=== PATIENT | female | born 1980 | race Caucasian/White ===

== ENCOUNTER → 2020-12-08 11:13 | Outpatient (CLI) | payer BC, SELFPAY ==
[2020-12-08 13:39] LABS: Hematocrit 40.4 % (37-47); Hemoglobin 13.5 g/dL (12.0-15.0); Mean Corp Hgb Conc 33.4 g/dL (32-36); Mean Corpuscular Hgb 26.9 pg (27.0-32.0); Mean Corpuscular Volume 80.6 fL (81-99); Mean Platelet Vol. 9.3 fl (6.2-12.0); Platelet Count 378 K/mm3 (150-450); RBC Distribution Width CV 14.2 % (11.6-14.6); RBC Distribution Width SD 41.1 fl (35.1-43.9); Red Blood Count 5.01 M/mm3 (4.2-5.4); White Blood Count 6.5 K/mm3 (4.4-11.0)
[2020-12-08 13:56] LABS: Follicle Stimulating Hormone 6.5 mIU/mL; Luteinizing Hormone 9.1 mIU/mL; Prolactin 5.3 ng/mL; T4 Free Direct 0.97 ng/dL (0.76-1.46); Thyroid Stim Hormone (TSH) 1.78 uIU/mL (0.358-3.74)
[2020-12-11 12:45] LABS: HPV APTIMA, High Risk Negative (Negative)
[2020-12-12 14:08] LABS: Chlamydia By Nucleic Acid AMP Negative (Negative); DHEA Sulfate 83.5 ug/dL (57.3-279.2); Gonococcus By Nucleic Acid AMP Negative (Negative)
[2020-12-13 07:53] LABS: Testosterone Free 1.3 pg/mL (0.0-4.2)
== END ==
PROVIDERS: Visit Provider Obstetrics & Gynecology
DX: N93.9 Abnormal uterine and vaginal bleeding, unspecified (principal); Z12.4 Encounter for screening for malignant neoplasm of cervix
CPT/HCPCS: 36415; 82627; 83001; 83002; 84146; 84402; 84439; 84443; 85027; 87491; 87591; 87624; 88175; 82626; G0145

== ENCOUNTER → 2020-12-29 | Outpatient (CLI) | payer BC, SELFPAY ==
--- NOTE | 2020-12-29 14:00 | EMB_PTH ---
PATIENT: LELAND HUITRON LOC: [facility] U#:[id number] AGE/SX: 40/F ROOM: RE12/29/[address]: Dr. Leandro Holt MD : [id number] BED: DIS: 12/29/2020 SPEC #: [id number] RECD: 12/29/20 15:48 STATUS: NYDIA ZHU #: [id number] ABDIEL: 12/29/20 14:[address]: Leandro Holt DEPT: SURGICAL PATHOLOGY RECD BY: Jaron Rivera Tissues: Endometrium, NOS Procedures: Surgery Specimen Level IV HEADER OPERATION: Endometrial biopsy PRE-OP DIAGNOSIS: N92.0, N94.6 TISSUE SUBMITTED: Endometrial biopsy MICROSCOPIC DIAGNOSIS Endometrial biopsy: Proliferative endometrium. Fragments of benign endocervical mucosa. SJ:julio 12/31/2020 MICROSCOPIC DESCRIPTION Slides are reviewed. GROSS DESCRIPTION Received in fixative is one container labeled with the patient's name and designated EM biopsy. The specimen consists of multiple fragments of hemorrhagic soft tissue mixed with mucoid tissue that in aggregate measure 2.5 x 2 x 0.1 cm. The specimen is totally submitted in one cassette. / SJ:rg 12/30/20 TC:4 CPT: 45288
== END | disposition home or self-care (01) ==
LOC: LABSPEC 15:15
PROVIDERS: Visit Provider Obstetrics & Gynecology
DX: N92.0 Excessive and frequent menstruation with regular cycle (principal); N94.6 Dysmenorrhea, unspecified
CPT/HCPCS: 88305